=== PATIENT | male | born 1950 | race Caucasian/White ===

== ENCOUNTER 2025-01-11 11:10 | Outpatient (CLI) | payer MEDICARE ==
--- NOTE | 2025-01-11 12:19 | RADIOLOGY REPORT ---
MR lumbar spine without contrast HISTORY: RADICULOPATHY, LUMBOSACRAL REGION TECHNIQUE: MR was performed with a surface coil at 1.5 T magnet. Sagittal, axial and coronal T1 and T2-weighted images were obtained. FINDINGS: The lumbar vertebrae are normal in height and alignment. Signal intensity changes of the L4-L5 vertebral endplates due to degenerative disc disease At L1-2 no narrowing of the central canal and neural foramina At L2-3 no narrowing of the central canal and neural foramina At L3-4 no narrowing of the central canal and neural foramina At L4-5 loss of disc height and signal intensity. No narrowing of the central canal and neural foramina At L5-S1 loss of disc height and signal intensity. Slight narrowing of the neural foramina by laterally bulging disc Cord ends at T12-L1 and is normal in appearance IMPRESSION: 1. Degenerative changes in the lower 2 lumbar disc spaces mainly at L4-5. 2. There is no evidence of disc herniation or nerve root compression
== END 2025-01-11 23:59 | disposition home or self-care (01) ==
LOC: MRI02 11:10
PROVIDERS: ATTEND Pain Medicine Interventional Pain Medicine
DX: M51.17 Intervertebral disc disorders with radiculopathy, lumbosacral region (principal); M48.07 Spinal stenosis, lumbosacral region; M47.26 Other spondylosis with radiculopathy, lumbar region
CPT/HCPCS: 72148